=== PATIENT | male | born 1965 | race Caucasian/White ===

== ENCOUNTER 2019-03-07 11:40 | Day surgery (SDC) | payer OTHER ==
[2019-03-07] VITALS (11 sets, daily range): BP systolic 127–161; BP diastolic 76–87; PULSE 58–68; RESP 12–18; Ht 160 cm; Wt 92.3 kg
[~2019-03-07] VITALS: Ht 160 cm; Wt 92.3 kg
[~2019-03-07 11:40] MED LIST: CYCLOPENTOLATE 1% 2 ML OPH OPER SCH; MOXIFLOXACIN 0.5% 3 ML OPH OPER SCH; PHENYLephrine 2.5% 15 ML OPH OPER SCH; TROPICAMIDE 1% 15 ML OPH OPER SCH
[2019-03-07] MEDS ORDERED: NEPAFENAC 0.1% 3 ML OPH OPER SCH (12:30)
[2019-03-07] MEDS ORDERED: FENO48TA4 PO (12:48)
[2019-03-07] MEDS ORDERED: LISI40TA3 PO (12:48)
--- NOTE | 2019-03-07 13:14 | PREAC ---
Date/Time of Note Date/Time of Note DATE: 03/07/19 TIME: 13:13 Anesthesia Eval and Record Evaluation Time Pre-Procedure Interview DATE: 03/07/19 TIME: 13:13 Age 53 Sex male NPO: 8 hrs Preoperative diagnosis L eye cataract Planned procedure L eye cataract extr w/ IOL Past Medical History Past Medical History: Includes (pre DM - diet controlled) Cardio: HTN Surgery & Anesthesia Issues No known issue Meds Anticoagulation: No Beta Shaan within 24 hr: No Reason Beta Shaan not given: Pt. not on B-Shaan Reported Medications Fenofibrate Nanocrystallized* (Fenofibrate*) 48 Mg Tablet, 48 MG PO DAILY, TAB 03/07/19 Lisinopril* (Lisinopril*) 40 Mg Tablet, 40 MG PO DAILY, #30 TAB 03/07/19 Current Medications Cyclopentolate HCl (Ak-Pentolate 1% Oph) 1 drop Q5 MIN X 3 OPER Last administered on 03/07/19at 13:03; Admin Dose 1 DROP; Start 03/04/19 at 11:00 Phenylephrine HCl (Ak-Dilate 2.5%) 1 drop Q5 MIN X 3 OPER Last administered on 03/07/19at 13:03; Admin Dose 1 DROP; Start 03/04/19 at 11:00 Tropicamide (Mydriacyl 1%) 1 drop Q5 MIN X3 OPER Last administered on 03/07/19at 13:03; Admin Dose 1 DROP; Start 03/04/19 at 11:00 Moxifloxacin HCl (Vigamox) 1 drop Q5 MIN X 3 OPER Last administered on 03/07/19at 13:03; Admin Dose 1 DROP; Start 03/04/19 at 11:00 Nepafenac (Nevanac Oph) 1 drop Q5 MIN X 3 OPER Last administered on 03/07/19at 13:03; Admin Dose 1 DROP; Start 03/07/19 at 12:30 Lactated Ringer's 1,000 ml @ 30 mls/hr Q24H IV ; Start 03/07/19 at 13:30 Meds reviewed: Yes Allergies Coded Allergies: No Known Allergy (Unverified , 03/07/19) Allergies Reviewed: Yes Labs/Studies Labs Reviewed: Reviewed by anesthesiologist test: N/A Studies: ECG (st), CXR (no active dz) Pre-procedure Exam Airway: Adequate mouth opening, Adequate thyromental dist Mallampati: Mallampati II Teeth: Normal (few missing teeth) Lung: Normal Heart: Normal ASA Physical Status ASA physical status: 2 Emergency: None Planned Anesthetic General/MAC: MAC Pre-operative Attestations Prior to commencing anesthesia and surgery, the patient was re-evaluated, there was verification of: *The patient's identity *The results of appropriate recent lab work and preoperative vital signs *The above evaluation not changing prior to induction *Anesthetic plan, risk benefits, alternative and complications discussed with patient/family; questions answered; patient/family understands, accepts and wishes to proceed. BEE ESPINAL Mar 07, 2019 13:14
[2019-03-07] MEDS ORDERED: ACETAMINOPHEN 325 MG TAB PO PRN (13:30)
[2019-03-07] MEDS ORDERED: OXYCODONE/ACETAMINOPHEN (5/325) TAB PO PRN (13:30)
[2019-03-07] MEDS ORDERED: ONDANSETRON 4 MG INJ IV PRN (13:30)
[2019-03-07] MEDS ORDERED: hydrALAzine 20 MG INJ IV PRN (13:30)
[2019-03-07] MEDS ORDERED: LABETALOL HCL 20MG INJ IV PRN (13:30)
[2019-03-07] MEDS ORDERED: FENTAnyl 50 MCG/ML VIAL IV PRN (13:30)
[2019-03-07] MEDS ORDERED: LACTATED RINGER'S 1,000 ML IV SCH (13:30)
[2019-03-07] MEDS ORDERED: ACETAMINOPHEN 500 MG TAB PO PRN (13:30)
[2019-03-07] MEDS ORDERED: ALBUTEROL 0.083% (NEB) 2.5 MG/3 ML AMP HHN PRN (13:30)
[2019-03-07] MEDS ORDERED: DIPHENHYDRAMINE 50 MG INJ IV PRN (13:30)
[2019-03-07] MEDS ORDERED: EPINEPHrine 1 MG INJ ONE (14:15)
[2019-03-07] MEDS ORDERED: TOBRAMYCIN/DEXAMETH 3.5 GM OPH OINT ONE (14:15)
[2019-03-07] MEDS ORDERED: TETRACAINE 0.5% 4 ML OPH ONE (14:15)
[2019-03-07] MEDS ORDERED: LIDOCAINE 1% (MPF) 30 ML INJ ONE (14:15)
--- NOTE | 2019-03-07 14:20 | HPN ---
Date/Time of Note Date/Time of Note DATE: 03/07/19 TIME: 14:20 Interval H&P Admission Note Pt. seen H&P reviewed: No system changes ISAIAS PALACIO Mar 07, 2019 14:20
[2019-03-07] MEDS ORDERED: FENTAnyl 50 MCG/ML VIAL ONE (14:33)
[2019-03-07] MEDS ORDERED: MIDAZOLAM 1 MG/ML 2 ML INJ ONE (14:33)
[2019-03-07] MEDS ORDERED: TRYPAN BLUE 0.5 ML SYG IO ONE (14:47)
[2019-03-07] MEDS ORDERED: METOPROLOL 5 MG INJ ONE (14:48)
--- NOTE | 2019-03-07 15:18 | OPR ---
Date/Time of Note Date/Time of Note DATE: 03/07/19 TIME: 15:14 Operative Report Free Text/Dictation Date of Surgery: 03/07/2019 Surgeon: Isaias Palacio MD PreOp Diagnosis: Age-related nuclear cataract, left eye PostOp Diagnosis: Same Implant: [id number] 25.5D Procedures: 1. Phacoemulsification and extraction of lens, left eye 2. Intraocular lens implantation, left eye Anesthesia: Monitored anesthesia care with topical anesthesia Complications: None Estimated blood loss: <1mL Description of Procedure: The patient suffers from a visually significant cataract of the left eye. After discussing the option of cataract surgery, including the risks and benefits, the patient voiced understanding and elected to proceed today. The patient was identified in the pre-op holding area where the left eye was marked. The patient was then brought to the operating room where a time out was called, identifying the patient, the procedure, and the correct site. Tetracaine eye drops were applied. The left eye was then prepped and draped in usual sterile ophthalmic fashion. An eyelid speculum was placed into the operative eye. A paracentesis was made inferiorly with a side port blade. 1% preservative free lidocaine was injected into the anterior chamber. Next, given the patient's dense cataract, Trypan blue was injected into the anterior chamber to help with visualization. After 25 seconds, this was irrigated out with BSS. Next, Viscoat was injected to deepen the anterior chamber. A 2.4 mm keratome was used to create a temporal corneal wound. A continuous curvilinear capsulorrhexis was started with a bent cystitome and completed with Utrata forceps. Hydrodissection was performed with a cannula and BSS and the lens was rotated. Phacoemulsification of the lens nucleus was accomplished in a [id number] technique. Remaining residual cortex was removed with irrigation and aspiration. The posterior lens capsule was noted to be intact. Provisc was used to inflate the capsular bag. The lens was injected into the capsular bag. Viscoelastic was removed with irrigation and aspiration. The anterior chamber was filled with BSS to physiologic pressure and the wounds were hydrated and watertight. The eyelid speculum was removed and tobradex ointment was placed into the eye. A scott shield was placed over the operative eye. The patient tolerated the procedure well and was in stable condition on the way to the recovery room. ISAIAS PALACIO Mar 07, 2019 15:18
--- NOTE | 2019-03-07 15:19 | PAC ---
Date/Time of Note Date/Time of Note DATE: 03/07/19 TIME: 15:18 Post-Anesthesia Notes Post-Anesthesia Note Last documented vital signs Vital Signs Date Temp Pulse Resp B/P Pulse Ox O2 O2 Flow FiO2 Time (MAP) Delivery Rate 03/07/19 98.6 99.3 68 68 16 18 161/87 99 97 RA 13:15 151 (111 13 4 Activity: WNL Respiratory function: WNL Cardiovascular function: WNL Mental status: Baseline Pain reasonably controlled: Yes Hydration appropriate: Yes Nausea/Vomiting absent: Yes BEE ESPINAL Mar 07, 2019 15:19
== END 2019-03-07 16:32 | disposition home or self-care (01) ==
LOC: SDS 11:40
PROVIDERS: ATTEND Ophthalmology
DX: I10 Essential (primary) hypertension (principal); E78.1 Pure hyperglyceridemia
CPT/HCPCS: 66984; J0171; J2250; J3010; V2632; Z7512; Z7610

== ENCOUNTER 2019-04-13 06:53 | Day surgery (SDC) | payer OTHER ==
[2019-04-13] VITALS (8 sets, daily range): BP systolic 103–156; BP diastolic 65–93; PULSE 62–72; RESP 14–24; Ht 160 cm; Wt 90.4 kg
[~2019-04-13] VITALS: Ht 160 cm; Wt 90.4 kg
[~2019-04-13 06:53] MED LIST changes: +FENO48TA4 PO; +LISI40TA3 PO; +NEPAFENAC 0.1% 3 ML OPH OPER SCH
--- NOTE | 2019-04-13 08:27 | HPN ---
Date/Time of Note Date/Time of Note DATE: 04/13/19 TIME: 08:27 Interval H&P Admission Note Pt. seen H&P reviewed: No system changes ISAIAS PALACIO Apr 13, 2019 08:27
--- NOTE | 2019-04-13 08:50 | PREAC ---
Date/Time of Note Date/Time of Note DATE: 04/13/19 TIME: 08:49 Anesthesia Eval and Record Evaluation Time Pre-Procedure Interview DATE: 04/13/19 TIME: 08:49 Age 53 Sex male NPO: 8 hrs Preoperative diagnosis R eye cataract Planned procedure R eye cataract extraction w/ IOL Past Medical History Past Medical History: Includes Cardio: HTN, Dyslipidemia Endo: Diabetes (pre DM) Surgery & Anesthesia Issues No known issue (cataract surgery) Meds Anticoagulation: No Beta Shaan within 24 hr: No Reason Beta Shaan not given: Pt. not on B-Shaan Reported Medications Fenofibrate Nanocrystallized* (Fenofibrate*) 48 Mg Tablet, 48 MG PO DAILY, TAB 03/07/19 Lisinopril* (Lisinopril*) 40 Mg Tablet, 40 MG PO DAILY, #30 TAB 03/07/19 Current Medications Cyclopentolate HCl (Ak-Pentolate 1% Oph) 1 drop Q 5 MIN X 3 OPER Last administered on 04/13/19at 07:42; Admin Dose 1 DROP; Start 04/13/19 at 06:00 Phenylephrine HCl (Ak-Dilate 2.5%) 1 drop Q 5 MIN X 3 OPER Last administered on 04/13/19at 07:42; Admin Dose 1 DROP; Start 04/13/19 at 06:00 Tropicamide (Mydriacyl 1%) 1 drop Q 5 MIN X3 OPER Last administered on 04/13/19at 07:42; Admin Dose 1 DROP; Start 04/13/19 at 06:00 Moxifloxacin HCl (Vigamox) 1 drop Q 5 MIN X 3 OPER Last administered on 9at 07:42; Admin Dose 1 DROP; Start 04/13/19 at 06:00 Nepafenac (Nevanac Oph) 1 drop Q 5 MIN X 3 OPER Last administered on 04/13/19at 07:42; Admin Dose 1 DROP; Start 04/13/19 at 06:00 Meds reviewed: Yes Allergies Coded Allergies: No Known Allergy (Unverified , 03/07/19) Allergies Reviewed: Yes Labs/Studies Labs Reviewed: Reviewed by anesthesiologist test: N/A Studies: ECG (stach, normal variant of ecg), CXR (No active dz) Pre-procedure Exam Last vitals Vital Signs Date Temp Pulse Resp B/P (MAP) Pulse Ox O2 O2 Flow FiO2 Time Delivery Rate 04/13/19 97.3 66 16 156/93 97 Room Air 07:51 (114) Airway: Adequate mouth opening, Adequate thyromental dist Mallampati: Mallampati II Teeth: Abnormal (multiple missing teeth) Lung: Normal Heart: Normal ASA Physical Status ASA physical status: 2 Emergency: None Planned Anesthetic General/MAC: MAC Pre-operative Attestations Prior to commencing anesthesia and surgery, the patient was re-evaluated, there was verification of: *The patient's identity *The results of appropriate recent lab work and preoperative vital signs *The above evaluation not changing prior to induction *Anesthetic plan, risk benefits, alternative and complications discussed with patient/family; questions answered; patient/family understands, accepts and wishes to proceed. BEE ESPINAL Apr 13, 2019 08:50
[2019-04-13] MEDS ORDERED: TOBRAMYCIN/DEXAMETH 2.5 ML OPH ONE (08:56)
[2019-04-13] MEDS ORDERED: NA HYALURONATE/CHONDROITIN 0.5 ML SYG ONE (08:56)
[2019-04-13] MEDS ORDERED: TETRACAINE 0.5% 4 ML OPH ONE (08:56)
[2019-04-13] MEDS ORDERED: EPINEPHrine 1 MG INJ ONE (08:56)
[2019-04-13] MEDS ORDERED: LIDOCAINE 1% (MPF) 10 ML INJ ONE (08:56)
[2019-04-13] MEDS ORDERED: OXYCODONE/ACETAMINOPHEN (5/325) TAB PO PRN (09:00)
[2019-04-13] MEDS ORDERED: ACETAMINOPHEN 500 MG TAB PO PRN (09:00)
[2019-04-13] MEDS ORDERED: LABETALOL HCL 20MG INJ IV PRN (09:00)
[2019-04-13] MEDS ORDERED: DIPHENHYDRAMINE 50 MG INJ IV PRN (09:00)
[2019-04-13] MEDS ORDERED: ACETAMINOPHEN 325 MG TAB PO PRN (09:00)
[2019-04-13] MEDS ORDERED: FENTAnyl 50 MCG/ML VIAL IV PRN ×2 (09:00)
[2019-04-13] MEDS ORDERED: ALBUTEROL 0.083% (NEB) 2.5 MG/3 ML AMP HHN PRN (09:00)
[2019-04-13] MEDS ORDERED: hydrALAzine 20 MG INJ IV PRN (09:00)
[2019-04-13] MEDS ORDERED: ONDANSETRON 4 MG INJ IV PRN (09:00)
[2019-04-13] MEDS ORDERED: MIDAZOLAM 1 MG/ML 2 ML INJ ONE (09:09)
[2019-04-13] MEDS ORDERED: FENTAnyl 50 MCG/ML VIAL ONE (09:09)
[2019-04-13] MEDS ORDERED: TIMOLOL 0.5% 5 ML OPH ONE (09:40)
--- NOTE | 2019-04-13 09:49 | OPR ---
Date/Time of Note Date/Time of Note DATE: 04/13/19 TIME: 09:46 Operative Report Free Text/Dictation Date of Surgery: 04/13/19 Surgeon: Isaias Palacio MD PreOp Diagnosis: Age-related nuclear cataract, right eye; posterior subcapsular cataract, right eye PostOp Diagnosis: Same Implant: [id number] 25.0D Procedures: 1. Phacoemulsification and extraction of lens, right eye 2. Intraocular lens implantation, right eye Anesthesia: Monitored anesthesia care with topical anesthesia Complications: None Estimated blood loss: <1mL Description of Procedure: The patient suffers from a visually significant cataract of the right eye. After discussing the option of cataract surgery, including the risks and benefits, the patient voiced understanding and elected to proceed today. The patient was identified in the pre-op holding area where the right eye was marked. The patient was then brought to the operating room where a time out was called, identifying the patient, the procedure, and the correct site. Tetracaine eye drops were applied. The right eye was then prepped and draped in usual sterile ophthalmic fashion. An eyelid speculum was placed into the operative eye. A paracentesis was made superiorly with a side port blade. 1% preservative free lidocaine was injected into the anterior chamber. Next, Viscoat was injected to deepen the anterior chamber. A 2.4 mm keratome was used to create a temporal corneal wound. A continuous curvilinear capsulorrhexis was started with a bent cystitome and completed with Utrata forceps. Hydrodissection was performed with a cannula and BSS and the lens was rotated. Phacoemulsification of the lens nucleus was accomplished in a [id number] technique. Remaining residual cortex was removed with irrigation and aspiration. The posterior lens capsule was noted to be intact. Provisc was used to inflate the capsular bag. The lens was injected into the capsular bag. Viscoelastic was removed with irrigation and aspiration. The anterior chamber was filled with BSS to physiologic pressure and the wounds were hydrated and watertight. The eyelid speculum was removed and a drop of timolol and tobradex ointment were placed into the eye. A scott shield was placed over the operative eye. The patient tolerated the procedure well and was in stable condition on the way to the recovery room. ISAIAS PALACIO Apr 13, 2019 09:49
--- NOTE | 2019-04-13 09:55 | PAC ---
Date/Time of Note Date/Time of Note DATE: 04/13/19 TIME: 09:53 Post-Anesthesia Notes Post-Anesthesia Note Last documented vital signs Vital Signs Date Temp Pulse Resp B/P Pulse Ox O2 O2 Flow FiO2 Time (MAP) Delivery Rate 04/13/19 97.3 97.7 66 72 16 17 156/93 97 99 Room 07:51 094 (652) 13 Air RA 6 Activity: WNL Respiratory function: WNL Cardiovascular function: WNL Mental status: Baseline Pain reasonably controlled: Yes Hydration appropriate: Yes Nausea/Vomiting absent: Yes BEE ESPINAL Apr 13, 2019 09:55
== END 2019-04-13 10:50 | disposition home or self-care (01) ==
LOC: SDS 06:53
PROVIDERS: ATTEND Ophthalmology
DX: H25.11 Age-related nuclear cataract, right eye (principal); I10 Essential (primary) hypertension; R73.03 Prediabetes
CPT/HCPCS: 66984; J0171; J2250; J3010; V2632; Z7512; Z7610